=== PATIENT | male | born 1985 | race African-American/Black ===

== ENCOUNTER → 2024-10-10 13:15 | Outpatient (CLI) | payer OTHER, SELFPAY ==
--- NOTE | 2024-10-10 13:18 | DI.CT.S_ITS ---
PROCEDURE: CT SINUS SCREEN WO CON INDICATIONS: NASAL OBSTRUCTION/PANSINUSITIS TECHNIQUE: Noncontrast 3.0 mm axial images acquired from the frontal sinuses to the mid-sella, with coronal and sagittal reformats. For radiation dose reduction, the following was used: automated exposure control, adjustment of mA and/or kV according to patient size. COMPARISON: None. FINDINGS: Image quality: Excellent. Maxillary Sinuses: No bony remodeling or destruction. Minimal mucosal disease. Ethmoid Air Cells: No bony remodeling or destruction. Sinuses are clear. Sphenoid Sinuses: No bony remodeling or destruction. Sinuses are clear. Frontal Sinuses: No bony remodeling or destruction. Sinuses are clear. Ostiomeatal Complexes: Ostiomeatal complexes are narrowed and partially opacified. Bilateral Issac cells. Miscellaneous: Visualized intra-orbital contents are normal. No mireya bullosa or paradoxical turbinate curvature. Mild leftward nasal septal deviation with spurring. Partial opacification of the left mastoid air cells. IMPRESSION: Minimal maxillary sinus disease. Paranasal sinuses are otherwise clear. Small fluid within the left mastoid air cells. Dictated by: Eleuterio Holt M.D. on 10/10/2024 at 16:40 Approved by: Eleuterio Holt M.D. on 10/10/2024 at 16:43
== END ==
PROVIDERS: Referring Provider Otolaryngology; Visit Provider Otolaryngology
DX: J34.89 Other specified disorders of nose and nasal sinuses (principal); J32.4 Chronic pansinusitis; J33.9 Nasal polyp, unspecified; J34.3 Hypertrophy of nasal turbinates; R43.8 Other disturbances of smell and taste; J34.2 Deviated nasal septum
CPT/HCPCS: 70486

== ENCOUNTER 2025-01-23 23:30 | Emergency (ER) | payer OTHER, SELFPAY ==
[2025-01-23 23:47] VITALS: BP 122/70; PULSE 94; RESP 18; TEMP 38.1; O2SAT 99; BMI 31.1
--- NOTE | 2025-01-23 23:56 | DI.RAD.S_ITS ---
PROCEDURE: XR CHEST 2V INDICATIONS: cough, fever chills TECHNIQUE: 2 views of the chest were acquired. COMPARISON: None. FINDINGS: Surgical changes and devices: None. Lungs and pleura: Mild appearance of bibasilar opacities. Mediastinum: Mediastinal contours are normal. Heart size is normal. Bones and chest wall: No suspicious bony abnormalities. Soft tissues appear unremarkable. IMPRESSION: Mild bibasilar opacities suggestive of developing pneumonia. Dictated by: Mari Cardoza M.D. on 01/24/2025 at 1:00 Approved by: Mari Cardoza M.D. on 01/24/2025 at 1:01
[2025-01-24] MEDS: AZITHROMYCIN 250 MG TABLET 500 MG PO (01:42)
--- NOTE | 2025-01-24 01:56 | ED.URI ---
HPI - URI/Sore Throat General Chief Complaint: Upper Respiratory Symptoms Stated Complaint: throat hurting, pressure headaches, cough Time Seen by Provider: 01/24/25 00:26 Source: patient Mode of arrival: Ambulatory History of Present Illness HPI Narrative: 39-year-old male with recent cough and sore throat and headache, toddler child at home has recent upper respiratory like symptoms as well. No current antibiotics. No previous evaluation. Not known to be exposed to any particular persons known to have COVID or influenza. No chronic heart or lung problems. Related Data Previous Rx's ?Medication ?Instructions ?Recorded azithromycin 250 mg tablet 250 mg PO DAILY 4 days #4 tabs 01/24/25 Allergies Allergy/AdvReac Type Severity Reaction Status Date / Time No Known Drug Allergies Allergy Verified 01/23/25 23:47 Patient History Social History Smoking Status: Never smoker Smoking Status: Never smoker Exam Narrative Exam Narrative: GENERAL: Well-developed patient, in mild distress. HEAD: Atraumatic. Normocephalic. EYES: Pupils equal round and reactive. Extraocular motions intact. No scleral icterus. No injection or drainage. ENT: Nose without bleeding, purulent drainage. Throat without erythema, tonsillar hypertrophy or exudate. Airway patent. NECK: Trachea midline. Non tender CARDIOVASCULAR: Regular rate and rhythm without murmurs, gallops, or rubs. RESPIRATORY: Clear to auscultation. Breath sounds equal bilaterally. No wheezes, rales, or rhonchi. GASTROINTESTINAL: Abdomen soft, non-tender, nondistended. EXTREMITIES: No edema or joint tenderness. BACK: Nontender without deformity or crepitance. No flank tenderness. NEURO: AOx3. Motor functions grossly nonfocal. SKIN: No rash or erythema of visible areas Initial Vital Signs Initial Vital Signs: Vital Signs Temperature 100.5 F H 01/23/25 23:47 Pulse Rate 94 H 01/23/25 23:47 Respiratory Rate 18 01/23/25 23:47 Blood Pressure 122/70 01/23/25 23:47 Pulse Oximetry 99 01/23/25 23:47 Oxygen Delivery Method Room Air 01/23/25 23:47 Course Orders Ordered: ED Orders 01/23/25 23:56 Chest [XR chest 2V] Stat Discontinued Medications Azithromycin (Azithromycin 250 Mg Tablet) 500 mg PO NOW ONE Stop: 01/24/25 01:28 Last Admin: 01/24/25 01:42 Dose: 500 mg Documented By: TIFFANI Tramadol HCl (Tramadol 50 Mg Prepack) 1 bottle MISC DIRECTED ONE Stop: 01/24/25 02:30 Last Admin: 01/24/25 02:31 Dose: 1 bottle Documented By: TIFFANI Vital Signs Vital signs: Vital Signs - 8 hr 01/23/25 23:47 01/24/25 02:24 Temperature 100.5 F H 101.7 F H Pulse Rate 94 H 93 H Respiratory Rate 18 20 Blood Pressure 122/70 127/70 Pulse Oximetry 99 96 Oxygen Delivery Method Room Air Room Air MDM - URI/Sore Throat Imaging Data Chest x-ray: Radiologist's Impression: Close Chest X-Ray (Signed) Mari Cardoza - 01/23/[address] [address] XRay Report Signed Patient: Javier Marr MR#: [id number] : 1985 Acct:[id number] Age/Sex: 39 / M Date of Service: 01/23/25 Loc: ED Accession Number: [id number] Procedure: XR chest 2V Ordering Provider: Gerardo Mercado MD PROCEDURE: XR CHEST 2V INDICATIONS: cough, fever chills TECHNIQUE: 2 views of the chest were acquired. COMPARISON: None. FINDINGS: Surgical changes and devices: None. Lungs and pleura: Mild appearance of bibasilar opacities. Mediastinum: Mediastinal contours are normal. Heart size is normal. Bones and chest wall: No suspicious bony abnormalities. Soft tissues appear unremarkable. IMPRESSION: Mild bibasilar opacities suggestive of developing pneumonia. Dictated by: Mari Cardoza M.D. on 01/24/2025 at 1:00 Approved by: Mari Cardoza M.D. on 01/24/2025 at 1:01 [facility] Narrative Medical decision making narrative: 39-year-old male with recent cough sore throat headache. Find strep screen at [facility]. Chest x-ray done from [facility] shows bibasilar opacities possible developing pneumonia. No oxygen requirement. Given oral dose of azithromycin. We will send prescription for further other azithromycin to his pharmacy at [facility]. Encouraged to take antibiotics for full course. Take Tylenol and or Motrin as needed for fevers and for pain. Recheck if not improving lacks couple of days with primary care provider. Return precautions discussed. Discharged home. Discharge Plan Departure Patient Disposition: Home Clinical Impression: Pneumonia Instructions: DI for Pneumonia -- Adult Activity Restrictions/Additional Instructions: Recent cough sore throat headache. Chest x-ray suspicious for early developing pneumonia. Oral dose of antibiotic given in the emergency department, prescription sent for further azithromycin antibiotic to take once daily for 4 more days for total course. Take Tylenol and or Motrin as needed for control of pain and fever symptoms. Recheck with your regular doctor if not improving in the next couple of days. Return to this/nearest emergency department for any change worsening symptoms or any concerns prior. Prescriptions: New azithromycin 250 mg tablet 250 mg PO DAILY 4 Days Qty: 4 0RF Rx Instructions: start on day 2 of therapy Referrals: [facility] [Primary Care Provider, Family Practice] Stand Alone Forms: Patient Portal/API, Work Release Note
[2025-01-24 02:24] VITALS: BP 127/70; PULSE 93; RESP 20; TEMP 38.7; O2SAT 96
[2025-01-24] MEDS: TRAMADOL 50 MG PREPACK 1 BOTTLE MISC (02:31)
== END 2025-01-24 02:37 | disposition home or self-care (01) ==
PROVIDERS: Emergency Provider Emergency Medicine
DX: J18.9 Pneumonia, unspecified organism (principal)
CPT/HCPCS: 71046; 99283